=== PATIENT | female | born 1975 | race Caucasian/White ===

== ENCOUNTER 2018-05-11 09:59 | Emergency (ER) | payer OTHER ==
[~2018-05-11] VITALS: Ht 170.2 cm; Wt 106.8 kg
[2018-05-11 10:03] VITALS: TEMP 97.6
[2018-05-11] MEDS ORDERED: SYNTHROID0.1 MG/TAB PO (10:11)
[2018-05-11] MEDS ORDERED: ALORA0.1 MG/24 TD (10:12)
[2018-05-11 10:27] LABS: BASO % 0.4 % (0.0-2.0); EOS # 0.2 (0.0-0.7); EOS % 2.6 % (0-4.0); GRAN % 69.9 % (42.2-75.2); HEMATOCRIT 41.5 % (37.0-47.0); HEMOGLOBIN 14.4 g/dl (12.5-16.0); LYMPH # 1.5 (1.2-3.4); LYMPH % 21.3 % (20.0-51.0); MEAN CELL VOLUME 89 fl (80.0-100.0); MEAN CORPUSCULAR HEMOGLOBIN 31 pg (27.0-31.0); MEAN CORPUSCULAR HGB CONC 35 g/dl (33.0-37.0); MEAN PLATELET VOLUME 10.7 fl (7.4-10.4); MONO # 0.4 (0.1-0.6); MONO % 5.5 % (1.7-9.3); PLATELET COUNT 218 K/mm3 (130-400); RED BLOOD COUNT 4.68 M/mm3 (4.10-5.30)
[2018-05-11 10:38] LABS: ALANINE AMINOTRANSFERASE 50 U/L (9-52); ALBUMIN 3.9 gm/dL (3.5-5.0); ALKALINE PHOSPHATASE 78 U/L (50-136); ANION GAP 6 mmol/L (7-16); AST,SGOT 109 U/L (15-37); BILIRUBIN,TOTAL 0.9 mg/dL (0.0-1.0); BLOOD UREA NITROGEN 13 mg/dL (7-17); CALCIUM 10.2 mg/dL (8.4-10.2); CARBON DIOXIDE 29 mmol/L (22-30); CHLORIDE 105 mmol/L (98-107); CREATININE, serum 1.07 mg/dL (0.52-1.25); GLUCOSE 108 mg/dL (74-106); POTASSIUM 3.8 mmol/L (3.4-5.0); SODIUM 139 mmol/L (137-145); TOTAL PROTEIN 6.9 gm/dL (6.4-8.2)
[2018-05-11 10:51] LABS: TROPONIN-I < 0.012 ng/mL (0.000-0.034)
[2018-05-11 11:08] LABS: THYROID STIMULATING HORMONE 0.087 uIU/mL (0.465-4.680)
[2018-05-11 11:10] LABS: COLLECTION METHOD CLEAN CATCH
[2018-05-11 11:21] LABS: PH 6 (5-8); URINE APPEARANCE Hazy; URINE BACTERIA None Seen /hpf; URINE BILIRUBIN Negative (NEGATIVE); URINE BLOOD 3+ (NEGATIVE); URINE COLOR Yellow; URINE GLUCOSE Negative (NEGATIVE); URINE KETONE Negative (NEGATIVE); URINE LEUKOCYTE ESTERASE Negative (NEGATIVE); URINE NITRATE Negative (NEGATIVE); URINE PROTEIN(semi-quant) Negative (NEGATIVE); URINE RBC 20-50 /hpf; URINE UROBILINOGEN Negative (NEGATIVE)
[2018-05-11] MEDS ORDERED: NEXIUM 40MG40 MG PO (13:14)
[2018-05-11] MEDS ORDERED: PHENERGAN 25 TA25 MG PO (13:14)
[2018-05-11] MEDS ORDERED: ZOFRAN ODT4 MG PO (13:30)
[2018-05-11] MEDS ORDERED: NEXIUM ORA40 MG/Pack PO (13:30)
[2018-05-11 13:40] VITALS: BP 138/88; PULSE 65
== END 2018-05-11 13:40 | disposition home or self-care (01) ==
LOC: COL.ER 09:59
PROVIDERS: Emergency Medicine
DX: R10.11 Right upper quadrant pain (principal); R53.81 Other malaise
CPT/HCPCS: J2550